=== PATIENT | male | born 1965 | race Caucasian/White ===

== ENCOUNTER 2018-11-22 18:50 | Emergency (ER) | payer BC ==
[2018-11-22] MEDS ORDERED: NS 0.9% 1000 ML** 1,000 ML IV ONE (20:12)
[2018-11-22 21:29] LABS: ABS Eosinophils 0.4 10^3/ul (0-0.6); ABS Lymphocytes 1.4 10^3/ul (1.0-4.8); ABS Monocytes 0.8 10^3/ul (0-0.8); ABS Neutrophils 6.7 10^3/ul (1.5-7.7); Eosinophil % 3.8 %; Hematocrit 43 % (42-52); Lymphocyte % 14.9 %; Mean Corpuscular HGB Conc 35 g/dL (31-36); Mean Corpuscular Hemoglobin 33 pg (27-31); Mean Corpuscular Volume 94 fL (80-94); Mean Platelet Volume 8.5 fL (7.4-10.4); Nucleated Red Blood Cells % 0.1; Platelet Count 198 10^3/uL (150-450); Red Blood Count 4.56 10^6 /uL (4.18-5.48); Red Cell Distribution Width 17 % (10-15); White Blood Count 9.3 10^3/uL (3.5-10.8)
[2018-11-22 21:36] LABS: INR 0.99 (0.82-1.09)
[2018-11-22 21:48] LABS: Albumin 4.3 g/dL (3.2-5.2); Albumin/Globulin Ratio 1.9 (1-3); BUN/Creatinine Ratio 13.7 (8-20); C Reactive Protein 13.64 mg/L (<8.01); Calcium 9.3 mg/dL (8.6-10.3); EGFR African American 78.9 (>60); EGFR Non-African American 65.2 (>60); Globulin 2.3 g/dL (2-4); Potassium 3.6 mmol/L (3.5-5.0); Total Bilirubin 0.8 mg/dL (0.2-1.0); Total Protein 6.6 g/dL (6.4-8.9)
[2018-11-22] MEDS ORDERED: Morphine 4 MG/ML VIAL (1 ml) 4 MG/ML VIAL IV ONE (22:04)
--- NOTE | 2018-11-22 22:17 | ED ---
GI/ HPI - HPI Summary HPI Summary: 53-year-old male presents with abdominal pain for the past day. He states that it started in left upper quadrant and has since moved to left lower quadrant. Denies any nausea vomiting. No diarrhea or constipation. No blood in his stool or dark tarry stool. No chest pain or shortness breath. He has never had this before. Has had his appendix removed. No urinary symptoms. Pain doesn't change with food. No loss of appetite. Has took ibuprofen for the pain without relief. - History of Current Complaint Chief Complaint: EDAbdPain Time Seen by Provider: 11/22/18 21:59 Stated Complaint: ABD APIN PER PT Pain Intensity: 9 - Allergy/Home Medications Allergies/Adverse Reactions: Allergies Allergy/AdvReac Type Severity Reaction Status Date / Time No Known Allergies Allergy Verified 12/09/12 10:30 Home Medications: Home Medications Levothyroxine TAB* [Synthroid TAB*] 112 mcg PO DAILY 11/22/18 [History Confirmed 11/22/18] Lisinopril/HCTZ 20/25(NF) [Zestoretic 20/(NF)] 1 tab PO DAILY 11/22/18 [ History Confirmed 11/22/18] Potassium Chlor TAB* [Klor Con ER TAB*] 10 meq PO DAILY 11/22/18 [History Confirmed 11/22/18] amLODIPine TAB* [Norvasc 5 mg TAB*] 10 mg PO DAILY 11/22/18 [History Confirmed 11/22/18] PMH/Surg Hx/FS Hx/Imm Hx Endocrine/Hematology History: Denies: Hx Anticoagulant Therapy Respiratory History: Denies: Hx Asthma - Surgical History Surgery Procedure, Year, and Place: pneumonia 2010 Infectious Disease History: No Infectious Disease History: Denies: History Other Infectious Disease, Traveled Outside the [place] in Last 30 Days - Family History Known Family History: Positive: Non-Contributory - Social History Substance Use Type: Reports: None Smoking Status (MU): Unknown if Ever Smoked Review of Systems Negative: Fever Negative: Chest Pain Negative: Shortness Of Breath Positive: Abdominal Pain. Negative: Vomiting, Diarrhea, Nausea All Other Systems Reviewed And Are Negative: Yes Physical Exam Triage Information Reviewed: Yes Vital Signs On Initial Exam: Initial Vitals Temp Pulse Resp BP Pulse Ox 98.2 F 74 16 155/87 94 11/22/18 18:53 11/22/18 18:53 11/22/18 18:53 11/22/18 18:53 11/22/18 18:53 Vital Signs Reviewed: Yes Appearance: Positive: Well-Appearing Skin: Positive: Warm, Dry Head/Face: Positive: Normal Head/Face Inspection Eyes: Positive: Normal, Conjunctiva Clear ENT: Positive: Pharynx normal Respiratory/Lung Sounds: Positive: Clear to Auscultation, Breath Sounds Present Cardiovascular: Positive: Normal, RRR Abdomen Description: Positive: Soft, Other: - tenderness LUQ and LLQ Bowel Sounds: Positive: Present Musculoskeletal: Positive: Normal Neurological: Positive: Normal Psychiatric: Positive: Normal Procedures - Sedation Patient Received Moderate/Deep Sedation with Procedure: No Diagnostics - Vital Signs Vital Signs Temp Pulse Resp BP Pulse Ox 11/22/18 21:05 99.3 F 67 16 138/66 94 11/22/18 18:53 98.2 F 74 16 155/87 94 - Laboratory Lab Results: Lab Results 11/22/18 11/22/18 11/22/18 Range/Units 21:18 21:18 21:18 WBC 9.3 (3.5-10.8) 10^3/uL RBC 4.56 (4.18-5.48) 10^6 /uL Hgb 15.0 (14.0-18.0) g/dL Hct 43 (42-52) % MCV 94 (80-94) fL MCH 33 H (27-31) pg MCHC 35 (31-36) g/dL RDW 17 H (10-15) % Plt Count 198 (150-450) 10^3/uL MPV 8.5 (7.4-10.4) fL Neut % (Auto) 72.1 % Lymph % (Auto) 14.9 % Ballard % (Auto) 8.7 % Eos % (Auto) 3.8 % Baso % (Auto) 0.5 % Absolute Neuts (auto) 6.7 (1.5-7.7) 10^3/ul Absolute Lymphs (auto) 1.4 (1.0-4.8) 10^3/ul Absolute Monos (auto) 0.8 (0-0.8) 10^3/ul Absolute Eos (auto) 0.4 (0-0.6) 10^3/ul Absolute Basos (auto) 0.0 (0-0.2) 10^3/ul Absolute Nucleated RBC 0.0 10^3/ul Nucleated RBC % 0.1 INR (Anticoag Therapy) 0.99 (0.82-1.09) Sodium 136 (135-145) mmol/L Potassium 3.6 (3.5-5.0) mmol/L Chloride 103 (101-111) mmol/L Carbon Dioxide 28 (22-32) mmol/L Anion Gap 5 (2-11) mmol/L BUN 16 (6-24) mg/dL Creatinine 1.17 (0.67-1.17) mg/dL Est GFR ( Amer) 78.9 (>60) Est GFR (Non-Af Amer) 65.2 (>60) BUN/Creatinine Ratio 13.7 (8-20) Glucose 106 H (70-100) mg/dL Lactic Acid (0.5-2.0) mmol/L Calcium 9.3 (8.6-10.3) mg/dL Total Bilirubin 0.80 (0.2-1.0) mg/dL AST 38 (13-39) U/L ALT 45 (7-52) U/L Alkaline Phosphatase 74 (34-104) U/L C-Reactive Protein 13.64 H (<8.01) mg/L Total Protein 6.6 (6.4-8.9) g/dL Albumin 4.3 (3.2-5.2) g/dL Globulin 2.3 (2-4) g/dL Albumin/Globulin Ratio 1.9 (1-3) Amylase 30 (29-103) U/L Lipase 42 (11.0-82.0) U/L 11/22/18 Range/Units 21:18 WBC (3.5-10.8) 10^3/uL RBC (4.18-5.48) 10^6 /uL Hgb (14.0-18.0) g/dL Hct (42-52) % MCV (80-94) fL MCH (27-31) pg MCHC (31-36) g/dL RDW (10-15) % Plt Count (150-450) 10^3/uL MPV (7.4-10.4) fL Neut % (Auto) % Lymph % (Auto) % Ballard % (Auto) % Eos % (Auto) % Baso % (Auto) % Absolute Neuts (auto) (1.5-7.7) 10^3/ul Absolute Lymphs (auto) (1.0-4.8) 10^3/ul Absolute Monos (auto) (0-0.8) 10^3/ul Absolute Eos (auto) (0-0.6) 10^3/ul Absolute Basos (auto) (0-0.2) 10^3/ul Absolute Nucleated RBC 10^3/ul Nucleated RBC % INR (Anticoag Therapy) (0.82-1.09) Sodium (135-145) mmol/L Potassium (3.5-5.0) mmol/L Chloride (101-111) mmol/L Carbon Dioxide (22-32) mmol/L Anion Gap (2-11) mmol/L BUN (6-24) mg/dL Creatinine (0.67-1.17) mg/dL Est GFR ( Amer) (>60) Est GFR (Non-Af Amer) (>60) BUN/Creatinine Ratio (8-20) Glucose (70-100) mg/dL Lactic Acid 0.9 (0.5-2.0) mmol/L Calcium (8.6-10.3) mg/dL Total Bilirubin (0.2-1.0) mg/dL AST (13-39) U/L ALT (7-52) U/L Alkaline Phosphatase (34-104) U/L C-Reactive Protein (<8.01) mg/L Total Protein (6.4-8.9) g/dL Albumin (3.2-5.2) g/dL Globulin (2-4) g/dL Albumin/Globulin Ratio (1-3) Amylase (29-103) U/L Lipase (11.0-82.0) U/L Result Diagrams: 11/22/18 21:18 11/22/18 21:18 Lab Statement: Any lab studies that have been ordered have been reviewed, and results considered in the medical decision making process. - CT abd CT Interpretation Completed By: Radiologist Summary of CT Findings: IMPRESSION: 1. Acute diverticulitis involving the distal descending colon. No free air, abscess, fistula, or bowel obstruction. 2. Cholelithiasis. 3. Fatty liver. 4. Large hiatal hernia that is similar in size compared to the prior CT on 12/09/2012. 5. Small fat containing umbilical hernia that is similar in size compared to the prior CT on 12/09/2012. Re-Evaluation - Re-Evaluation First Eval Re-Evaluation Time: 00:37 Change: Improved Comment: feeling better GIGU Course/Dx - Course Course Of Treatment: 53-year-old male presents with abdominal pain for the past day. He states that it started in left upper quadrant and has since moved to left lower quadrant. Denies any nausea vomiting. No diarrhea or constipation. No blood in his stool or dark tarry stool. No chest pain or shortness breath. He has never had this before. Has had his appendix removed. No urinary symptoms. Pain doesn't change with food. No loss of appetite. Has took ibuprofen for the pain without relief. On exam tenderness in left upper quadrant and left lower quadrant. White blood count normal. CRP elevated. urine no infection. CT shows diverticulitis. will treat with augmentin and flagyl. patient understand and agrees with plan. - Diagnoses Differential Diagnoses - Male: Diverticulitis, Gastritis, Gastroenteritis (Viral ) Provider Diagnoses: Diverticulitis Discharge ED - Sign-Out/Discharge Documenting (check all that apply): Patient Departure - Discharge Plan Condition: Good Disposition: HOME Prescriptions: Amoxicillin/Clavulanate TAB* [Augmentin TAB 875*] 875 mg PO BID #19 tab HYDROcodone/ACETAMIN 5-325 MG* [[place] 5-325 TAB*] 1 tab PO Q6H PRN #8 tab MDD 4 PRN Reason: Pain - Severe metroNIDAZOLE [Flagyl 500 MG TAB] 500 mg PO TID #29 tab Patient Education Materials: Diverticulitis (ED) Referrals: Justa Augustin [facility] [Primary Care Provider] - Additional Instructions: Take augmentin twice a day for 10 days, first dose given in ED Take Flagyl every 8 hours for 10 days, first dose given in ED Take tyenlol or ibuprofen every 6 hours for pain, use norco for break through pain every 6 hours Follow clear liquid diet until symptoms improve follow up with primary Return to ED if develop any new or worsening symptoms - Billing Disposition and Condition Condition: GOOD Disposition: Home
[2018-11-22] MEDS ORDERED: Iohexol 300* (CONTRAST) 10 ML SDV IV ONE (22:58)
[2018-11-23 00:05] LABS: Urine Appearance Clear; Urine Bilirubin Negative (Negative); Urine Blood Negative (Negative); Urine Color Straw; Urine Glucose Negative (Negative); Urine Ketones Negative (Negative); Urine Nitrite Negative (Negative); Urine Protein Negative (Negative); Urine Specific Gravity 1.014 (1.010-1.030); Urine Urobilinogen Negative (Negative)
[2018-11-23] MEDS ORDERED: Amoxicillin/Clavulanate TAB* 875 MG PO ONE (00:27)
[2018-11-23] MEDS ORDERED: metroNIDAZOLE TAB* 250 MG PO ONE (00:27)
[2018-11-23] MEDS ORDERED: HYDROcodone/ACETAMIN 5-325 MG* 1 TAB PO ONE (00:27)
[2018-11-23 01:12] VITALS: BP 118/79
== END 2018-11-23 01:12 | disposition home or self-care (01) ==
LOC: ED 18:50
DX: K57.92 Diverticulitis of intestine, part unspecified, without perforation or abscess without bleeding (principal); R10.9 Unspecified abdominal pain; Z79.899 Other long term (current) drug therapy
CPT/HCPCS: 36415; 74177; 80053; 81003; 82150; 83605; 83690; 85025; 85610; 86140; 99283; A9270-GY; J2270; Q9967

== ENCOUNTER 2023-02-06 10:59 | Inpatient (IN) ==
[2023-02-06] MEDS ORDERED: Furosemide 40 mg/4 ml IV VIAL IV SLOW PU ONE (13:25)
[2023-02-06 13:30] LABS: Hematocrit 13.7 % (38-53); Hemoglobin 4.1 g/dL (13.2-16.3); Mean Corpuscular Hemoglobin 17.7 pg (27-33); Mean Corpuscular Hgb Conc 29.6 g/dL (31-36); Mean Corpuscular Volume 59.6 fL (80-97); Mean Platelet Volume 8.3 fL (7.5-11.2); Platelet Count 292 10^3/uL (150-450); Red Blood Count 2.31 10^6/uL (4.06-5.63); Red Cell Distribution Width 21.8 % (12-17); White Blood Count 5.7 10^3/uL (3.6-10.2)
[2023-02-06 13:40] LABS: Albumin 3.7 g/dL (3.2-5.2); Albumin/Globulin Ratio 1.3 (1-3); Calcium 9.2 mg/dL (8.6-10.3); Creatinine, Serum 1.4 mg/dL (0.67-1.17); Globulin 2.9 g/dL (2-4); Total Bilirubin 0.9 mg/dL (0.2-1.0); Total Protein 6.6 g/dL (6.4-8.9); eGFR CKD-EPI 58.6 (>60)
[2023-02-06 13:53] LABS: ABS Basophils 0.1 10^3/uL (0.0-0.1); ABS Eosinophils 0.1 10^3/uL (0.0-0.5); ABS Lymphocytes 0.6 10^3/uL (1.0-4.8); ABS Monocytes 0.5 10^3/uL (0.0-1.1); ABS Neutrophils 4.6 10^3/uL (1.5-7.6); ABS Nucleated RBC 0.02 10^3/ul; Anisocytosis 2+; Eosinophil % 0.9 %; Hypochromasia 2+; Lymphocyte % 10.1 %; Microcytosis 3+; Nucleated Red Blood Cells % 0.4 %/100WBC (0.0-0.8); Polychromasia 1+
[2023-02-06] MEDS ORDERED: Iodixanol (CONTRAST) 320 MG/ML 100 ML SDV IV ONE (14:58)
[2023-02-06] MEDS ORDERED: Azithromycin 500 mg/250 ml NS 500 MG/250 ML BAG IVPB ONE (17:38)
[2023-02-06] MEDS ORDERED: cefTRIAXone 1 gm/50 mL D5W 1 GM/50 ML BAG IV ONE (17:38)
[2023-02-06] MEDS ORDERED: Vancomycin per Pharmacy 1 EA NOTE FOLLOW UP PRN (23:04)
[2023-02-06] MEDS ORDERED: Potassium Chlor 20 meq TAB.ER PO ONE (23:11)
[2023-02-06] MEDS: Furosemide 20 mg/2 ml IV VIAL IV SCH (23:59)
[2023-02-07] MEDS ORDERED: Vancomycin 1,750 MG in NS 0.9% 500 ml BAG 500 ML IVPB ONE
[2023-02-07 00:09] LABS: Hematocrit for Retic CNT 15.5 % (38-53); Immature Retic Fraction 0.52; RBC Retic Count 2.51 10^6/ul (4.06-5.63)
[2023-02-07 00:54] LABS: TSH Ultra Thyroid Stim Horm 2.27 mcIU/mL (0.34-5.60)
[2023-02-07 01:00] LABS: Ferritin 4.1 ng/mL (24-336)
[2023-02-07 04:55] LABS: Albumin 3.5 g/dL (3.2-5.2); Albumin/Globulin Ratio 1.3 (1-3); Calcium 8.3 mg/dL (8.6-10.3); Creatinine, Serum 1.3 mg/dL (0.67-1.17); Globulin 2.7 g/dL (2-4); Magnesium 1.8 mg/dL (1.9-2.7); Potassium 3.1 mmol/L (3.5-5.0); Total Bilirubin 1.6 mg/dL (0.2-1.0); Total Protein 6.2 g/dL (6.4-8.9); eGFR CKD-EPI 64.1 (>60)
[2023-02-07 05:02] LABS: Urine Appearance Clear; Urine Bilirubin Negative (Negative); Urine Blood Negative (Negative); Urine Color Yellow; Urine Glucose Negative (Negative); Urine Ketones Negative (Negative); Urine Nitrite Negative (Negative); Urine Protein Negative (Negative); Urine Specific Gravity 1.014 (1.002-1.030); Urine Urobilinogen Negative (Negative)
[2023-02-07 05:13] LABS: ABS Basophils 0.1 10^3/uL (0.0-0.1); ABS Eosinophils 0.1 10^3/uL (0.0-0.5); ABS Lymphocytes 0.7 10^3/uL (1.0-4.8); ABS Monocytes 0.7 10^3/uL (0.0-1.1); ABS Nucleated RBC 0.02 10^3/ul; Eosinophil % 2.2 %; Hematocrit 19.8 % (38-53); Hemoglobin 6.3 g/dL (13.2-16.3); Lymphocyte % 11.2 %; Mean Corpuscular Hemoglobin 21.1 pg (27-33); Mean Corpuscular Hgb Conc 31.8 g/dL (31-36); Mean Corpuscular Volume 66.4 fL (80-97); Mean Platelet Volume 8.2 fL (7.5-11.2); Nucleated Red Blood Cells % 0.3 %/100WBC (0.0-0.8); Platelet Count 267 10^3/uL (150-450); Red Blood Count 2.99 10^6/uL (4.06-5.63); Red Cell Distribution Width 28.2 % (12-17); White Blood Count 6.7 10^3/uL (3.6-10.2)
[2023-02-07] MEDS ORDERED: Magnesium Sulfate 2 gm BAG 2 GM/50 ML BAG IVPB ONE (07:30)
[2023-02-07] MEDS: Potassium Chlor 20 meq TAB.ER PO SCH ×2 (08:53→10:35)
[2023-02-07] MEDS: Cholecalciferol (VIT D3) 1,000 unit TAB PO SCH (08:54)
[2023-02-07] MEDS: Potassium Chlor 10 meq TAB PO SCH (08:54)
[2023-02-07] MEDS: Furosemide 20 mg/2 ml IV VIAL IV SCH ×2 (08:55→20:07)
[2023-02-07 12:23] LABS: ABS Basophils 0.1 10^3/uL (0.0-0.1); ABS Eosinophils 0.2 10^3/uL (0.0-0.5); ABS Lymphocytes 0.7 10^3/uL (1.0-4.8); ABS Monocytes 0.6 10^3/uL (0.0-1.1); ABS Neutrophils 5.1 10^3/uL (1.5-7.6); ABS Nucleated RBC 0.03 10^3/ul; Eosinophil % 2.6 %; Hematocrit 23.8 % (38-53); Hemoglobin 7.6 g/dL (13.2-16.3); Lymphocyte % 10.7 %; Mean Corpuscular Hemoglobin 21.6 pg (27-33); Mean Corpuscular Hgb Conc 32.1 g/dL (31-36); Mean Corpuscular Volume 67.5 fL (80-97); Mean Platelet Volume 8.3 fL (7.5-11.2); Nucleated Red Blood Cells % 0.5 %/100WBC (0.0-0.8); Platelet Count 287 10^3/uL (150-450); Red Blood Count 3.53 10^6/uL (4.06-5.63); Red Cell Distribution Width 27.6 % (12-17); White Blood Count 6.7 10^3/uL (3.6-10.2)
[2023-02-07 13:05] LABS: Anisocytosis 2+; Hypochromasia 2+; Microcytosis 2+; Polychromasia 1+; Target Cells 1+
[2023-02-07 13:46] LABS: C Reactive Protein 20.9 mg/L (<8.01); CRP High Sensitivity 21.94 mg/L (<2.00)
[2023-02-07] MEDS ORDERED: Vancomycin 1000 MG in NS 0.9% 250 ML IVPB SCH (15:00)
[2023-02-07 15:05] LABS: INR 1.28 (0.83-1.13)
[2023-02-07 16:04] LABS: Erythrocyte Sed Rate 35 mm/Hr (0-19)
[2023-02-07] MEDS: cefTRIAXone 1 gm/50 mL D5W 1 GM/50 ML BAG IV SCH (17:19)
[2023-02-07] MEDS: Azithromycin 500 mg/250 ml NS 500 MG/250 ML BAG IVPB SCH (17:53)
[2023-02-07] MEDS ORDERED: Albuterol/Ipratropium NEB.SOL (2.5/0.5 MG) 3 ML NEB.SOLN INH PRN (18:40)
[2023-02-07 20:22] LABS: Hematocrit 23.3 % (38-53); Hemoglobin 7.4 g/dL (13.2-16.3); Mean Corpuscular Hemoglobin 21.7 pg (27-33); Mean Corpuscular Hgb Conc 31.8 g/dL (31-36); Mean Corpuscular Volume 68.2 fL (80-97); Mean Platelet Volume 8.5 fL (7.5-11.2); Platelet Count 268 10^3/uL (150-450); Red Blood Count 3.42 10^6/uL (4.06-5.63); Red Cell Distribution Width 26.9 % (12-17); White Blood Count 8.3 10^3/uL (3.6-10.2)
[2023-02-07 20:43] LABS: ABS Basophils 0.1 10^3/uL (0.0-0.1); ABS Eosinophils 0.2 10^3/uL (0.0-0.5); ABS Lymphocytes 0.4 10^3/uL (1.0-4.8); ABS Monocytes 0.4 10^3/uL (0.0-1.1); ABS Neutrophils 7.3 10^3/uL (1.5-7.6); ABS Nucleated RBC 0.02 10^3/ul; Eosinophil % 2.1 %; Lymphocyte % 4.3 %; Nucleated Red Blood Cells % 0.3 %/100WBC (0.0-0.8)
[2023-02-08 06:58] LABS: Calcium 8.5 mg/dL (8.6-10.3); Creatinine, Serum 1.13 mg/dL (0.67-1.17); Magnesium 2.2 mg/dL (1.9-2.7); Phosphorus 3.1 mg/dL (2.5-5.0); Potassium 3.7 mmol/L (3.5-5.0); eGFR CKD-EPI 75.8 (>60)
[2023-02-08] MEDS: Furosemide 20 mg/2 ml IV VIAL IV SCH ×2 (10:36→20:58)
[2023-02-08] MEDS ORDERED: Heparin 2 UNITS/ML 1000 mls 0 ML IV ONE (13:16)
[2023-02-08] MEDS ORDERED: Vancomycin Trough Check NOTE FOLLOW UP ONE (14:30)
[2023-02-08] MEDS: Potassium Chlor 10 meq TAB PO SCH (18:35)
[2023-02-08] MEDS: Cholecalciferol (VIT D3) 1,000 unit TAB PO SCH (18:35)
[2023-02-08] MEDS: Azithromycin 500 mg/250 ml NS 500 MG/250 ML BAG IVPB SCH (18:36)
[2023-02-08 19:50] LABS: Urine TP Concentration 13 mg/dL
[2023-02-08] MEDS: cefTRIAXone 1 gm/50 mL D5W 1 GM/50 ML BAG IV SCH (20:53)
[2023-02-09 07:17] LABS: Hematocrit 24.2 % (38-53); Hemoglobin 7.7 g/dL (13.2-16.3); Mean Corpuscular Hemoglobin 21.9 pg (27-33); Mean Corpuscular Hgb Conc 31.8 g/dL (31-36); Mean Corpuscular Volume 68.8 fL (80-97); Mean Platelet Volume 8.3 fL (7.5-11.2); Platelet Count 265 10^3/uL (150-450); Red Blood Count 3.52 10^6/uL (4.06-5.63); Red Cell Distribution Width 27.7 % (12-17); White Blood Count 7.5 10^3/uL (3.6-10.2)
[2023-02-09 07:22] LABS: Calcium 8.5 mg/dL (8.6-10.3); Creatinine, Serum 1.06 mg/dL (0.67-1.17); Potassium 3.8 mmol/L (3.5-5.0); eGFR CKD-EPI 81.9 (>60)
[2023-02-09 07:46] LABS: ABS Lymphocytes 0.5 10^3/uL (1.0-4.8); ABS Monocytes 0.1 10^3/uL (0.0-1.1); ABS Neutrophils 6.8 10^3/uL (1.5-7.6); ABS Nucleated RBC 0.03 10^3/ul; Lymphocyte % 6.6 %; Nucleated Red Blood Cells % 0.4 %/100WBC (0.0-0.8)
[2023-02-09 07:47] LABS: Anisocytosis 2+; Hypochromasia 1+; Microcytosis 2+; Polychromasia 1+
[2023-02-09] MEDS: Potassium Chlor 10 meq TAB PO SCH (10:08)
[2023-02-09] MEDS: Cholecalciferol (VIT D3) 1,000 unit TAB PO SCH (10:08)
[2023-02-09] MEDS ORDERED: Heparin 2 UNITS/ML 1000 mls 1,000 ML IV ONE (10:43)
[2023-02-09] MEDS: Albuterol/Ipratropium NEB.SOL (2.5/0.5 MG) 3 ML NEB.SOLN INH SCH ×2 (11:29→13:29)
[2023-02-09] MEDS ORDERED: fentaNYL 100 mcg/2 ml 50 MCG/ML VIAL ONE (11:51)
[2023-02-09] MEDS: Furosemide 20 mg/2 ml IV VIAL IV SCH (13:31)
[2023-02-09] MEDS ORDERED: Albuterol/Ipratropium NEB.SOL (2.5/0.5 MG) 3 ML NEB.SOLN INH PRN (13:32)
[2023-02-09] MEDS ORDERED: Furosemide 40 mg/4 ml IV VIAL IV ONE (16:21)
[2023-02-09] MEDS: Azithromycin 500 mg/250 ml NS 500 MG/250 ML BAG IVPB SCH (17:01)
[2023-02-09] MEDS: cefTRIAXone 1 gm/50 mL D5W 1 GM/50 ML BAG IV SCH (18:19)
[2023-02-10 06:44] LABS: Calcium 8.7 mg/dL (8.6-10.3); Creatinine, Serum 1.11 mg/dL (0.67-1.17); Magnesium 1.9 mg/dL (1.9-2.7); Potassium 3.4 mmol/L (3.5-5.0); eGFR CKD-EPI 77.5 (>60)
[2023-02-10 06:58] LABS: Hematocrit 25.3 % (38-53); Mean Corpuscular Hemoglobin 21.9 pg (27-33); Mean Corpuscular Hgb Conc 31.5 g/dL (31-36); Mean Corpuscular Volume 69.5 fL (80-97); Mean Platelet Volume 8.5 fL (7.5-11.2); Platelet Count 263 10^3/uL (150-450); Red Blood Count 3.64 10^6/uL (4.06-5.63); Red Cell Distribution Width 28.9 % (12-17); White Blood Count 9.9 10^3/uL (3.6-10.2)
[2023-02-10] MEDS ORDERED: Potassium Chlor 20 meq TAB.ER PO ONE (07:15)
[2023-02-10] MEDS ORDERED: Magnesium Sulfate 2 gm BAG 2 GM/50 ML BAG IVPB ONE (07:15)
[2023-02-10 07:27] LABS: ABS Monocytes 0.7 10^3/uL (0.0-1.1); ABS Neutrophils 8.1 10^3/uL (1.5-7.6); ABS Nucleated RBC 0.02 10^3/ul; Anisocytosis 3+; Hypochromasia 1+; Lymphocyte % 10.3 %; Nucleated Red Blood Cells % 0.2 %/100WBC (0.0-0.8); Polychromasia 2+
[2023-02-10] MEDS: Cholecalciferol (VIT D3) 1,000 unit TAB PO SCH (09:13)
[2023-02-10] MEDS: Potassium Chlor 10 meq TAB PO SCH (09:13)
[2023-02-10] MEDS: cefTRIAXone 1 gm/50 mL D5W 1 GM/50 ML BAG IV SCH (17:46)
[2023-02-10] MEDS: Furosemide 40 mg/4 ml IV VIAL IV SCH (22:18)
[2023-02-11 07:01] LABS: Hematocrit 25.5 % (38-53); Hemoglobin 8.1 g/dL (13.2-16.3); Mean Corpuscular Hemoglobin 21.5 pg (27-33); Mean Corpuscular Hgb Conc 31.6 g/dL (31-36); Mean Corpuscular Volume 68.2 fL (80-97); Mean Platelet Volume 8.3 fL (7.5-11.2); Platelet Count 243 10^3/uL (150-450); Red Blood Count 3.74 10^6/uL (4.06-5.63); Red Cell Distribution Width 28.9 % (12-17)
[2023-02-11 07:12] LABS: Albumin 3.6 g/dL (3.2-5.2); Albumin/Globulin Ratio 1.4 (1-3); Creatinine, Serum 0.92 mg/dL (0.67-1.17); Globulin 2.5 g/dL (2-4); Potassium 3.2 mmol/L (3.5-5.0); Total Bilirubin 1.1 mg/dL (0.2-1.0); Total Protein 6.1 g/dL (6.4-8.9)
[2023-02-11] MEDS ORDERED: Potassium Chlor 20 meq TAB.ER PO ONE (08:20)
[2023-02-11] MEDS: Furosemide 40 mg/4 ml IV VIAL IV SCH (09:52)
[2023-02-11] MEDS: Cholecalciferol (VIT D3) 1,000 unit TAB PO SCH (09:53)
[2023-02-11] MEDS: Potassium Chlor 10 meq TAB PO SCH (09:53)
[2023-02-11 13:31] VITALS: BP 130/67
[2023-02-12 13:51] LABS: TB1 Ag minus Nil Result -0.01 IU/mL; TB2 Ag minus Nil Result -0.01 IU/mL
[2023-02-12 13:52] LABS: QuantiferonTb Gold Plus Result Negative (Negative)
[2023-02-13 10:46] LABS: C-ANCA Negative (Negative); P-ANCA Indeterminate (Negative)
== END 2023-02-11 15:18 | disposition home or self-care (01) | DRG 189 ==
LOC: ED 10:59 → EDHOLD 10:59 → SUATTDRO 20:10 → MED 21:16
PROVIDERS: ADMIT Internal Medicine; ATTEND Student in an Organized Health Care Education/Training Program

== ENCOUNTER 2023-02-20 10:09 | Inpatient (IN) ==
[2023-02-20 11:45] LABS: Activated Partial Thrombo Time 24.1 seconds (26.0-38.0); INR 1.07 (0.83-1.13)
[2023-02-20 11:57] LABS: High Sens Troponin Baseline 46 pg/mL (<20)
[2023-02-20 11:59] LABS: ALT 410 U/L (7-52); Albumin 3.4 g/dL (3.2-5.2); Alkaline Phosphatase 421 U/L (35-149); Anion Gap 11 mmol/L (2-16); Blood Urea Nitrogen 40 mg/dL (6-24); C Reactive Protein 126.98 mg/L (<8.01); CO2 Carbon Dioxide 24 mmol/L (22-32); Calcium 8.7 mg/dL (8.6-10.3); Chloride 101 mmol/L (101-111); Creatinine, Serum 1.68 mg/dL (0.67-1.17); Globulin 3.4 g/dL (2-4); Glucose 130 mg/dL (70-100); Sodium 136 mmol/L (135-145); Total Protein 6.8 g/dL (6.4-8.9); eGFR CKD-EPI 47.1 (>60)
[2023-02-20 12:22] LABS: ABS Lymphocytes 0.3 10^3/uL (1.0-4.8); ABS Monocytes 0.4 10^3/uL (0.0-1.1); ABS Neutrophils 2.9 10^3/uL (1.5-7.6); ABS Nucleated RBC 0.01 10^3/ul; Eosinophil % 0.1 %; Hematocrit 24.2 % (38-53); Hemoglobin 7.9 g/dL (13.2-16.3); Lymphocyte % 8.9 %; Mean Corpuscular Hgb Conc 32.6 g/dL (31-36); Mean Corpuscular Volume 67.3 fL (80-97); Nucleated Red Blood Cells % 0.3 %/100WBC (0.0-0.8); Platelet Count 162 10^3/uL (150-450); Red Cell Distribution Width 29.9 % (12-17); White Blood Count 3.6 10^3/uL (3.6-10.2)
[2023-02-20 13:36] LABS: Direct Bilirubin 0.4 mg/dL (0.03-0.18); Potassium Redraw 4.4 mmol/L (3.5-5.0)
[2023-02-20 13:47] LABS: Albumin 3.3 g/dL (3.2-5.2); Albumin/Globulin Ratio 1.1 (1-3); Direct Bilirubin 0.3 mg/dL (0.03-0.18); Globulin 3.1 g/dL (2-4); Indirect Bilirubin 0.5 mg/dL (0.3-1.0); Total Bilirubin 0.8 mg/dL (0.2-1.0); Total Protein 6.4 g/dL (6.4-8.9)
[2023-02-20] MEDS ORDERED: Piperacillin/Tazobac 3.375 BAG 3.375 GM/100 ML BAG IV ONE ×2 (14:24→17:07)
[2023-02-20 15:17] LABS: Hepatitis B Surface Antigen Nonreactive (Nonreactive)
[2023-02-20 15:22] LABS: Hepatitis A Ab IgM Negative (Negative); Hepatitis B Core IgM Nonreactive (Nonreactive)
[2023-02-20] MEDS ORDERED: Lactated Ringers 1000 ml BAG 1,000 ML IV ONE ×2 (15:23→20:05)
[2023-02-20 15:34] LABS: Hepatitis C Antibody Negative (Negative)
[2023-02-20] MEDS ORDERED: Zosyn per Pharmacy NOTE FOLLOW UP SCH ×2 (18:00)
[2023-02-20] MEDS ORDERED: ZOSYN 3.375 GM Q8H per EXTENDED INFUSION IV SCH (18:00)
[2023-02-20 18:54] LABS: Erythrocyte Sed Rate 113 mm/Hr (0-19)
[2023-02-20] MEDS ORDERED: Ondansetron 4 mg VIAL 2 MG/ML 2 ml VIAL IV PRN (19:36)
[2023-02-21 00:52] LABS: HIV 4th Generation Nonreactive (Nonreactive)
[2023-02-21] MEDS: ZOSYN 3.375 GM Q8H per EXTENDED INFUSION IV SCH ×3 (02:01→18:05)
[2023-02-21 07:23] LABS: Albumin 3.1 g/dL (3.2-5.2); Calcium 8.3 mg/dL (8.6-10.3); Creatinine, Serum 1.34 mg/dL (0.67-1.17); Globulin 3.2 g/dL (2-4); Potassium 4.2 mmol/L (3.5-5.0); Total Bilirubin 0.8 mg/dL (0.2-1.0); Total Protein 6.3 g/dL (6.4-8.9); eGFR CKD-EPI 61.8 (>60)
[2023-02-21 07:38] LABS: Hematocrit 23.2 % (38-53); Hematocrit for Retic CNT 23.2 % (38-53); Hemoglobin 7.4 g/dL (13.2-16.3); Mean Corpuscular Hgb Conc 32.1 g/dL (31-36); Mean Corpuscular Volume 68.5 fL (80-97); Mean Platelet Volume 8.9 fL (7.5-11.2); Platelet Count 161 10^3/uL (150-450); RBC Retic Count 3.38 10^6/ul (4.06-5.63); Red Blood Count 3.38 10^6/uL (4.06-5.63); Red Cell Distribution Width 29.6 % (12-17)
[2023-02-21] MEDS: D5W 1000 ml BAG 1,000 ML IV SCH ×2 (08:22→18:05)
[2023-02-21 08:41] LABS: Corrected Retic Count 0.2 % (0.5-1.5); Immature Retic Fraction 0.22
[2023-02-21 08:50] LABS: ABS Lymphocytes 0.4 10^3/uL (1.0-4.8); ABS Monocytes 0.2 10^3/uL (0.0-1.1); ABS Neutrophils 1.2 10^3/uL (1.5-7.6); Eosinophil % 0.8 %; Lymphocyte % 21.1 %; Nucleated Red Blood Cells % 0.1 %/100WBC (0.0-0.8)
[2023-02-21 18:09] LABS: Ferritin 505.2 ng/mL (24-336)
[2023-02-22] MEDS: ZOSYN 3.375 GM Q8H per EXTENDED INFUSION IV SCH ×3 (02:07→18:26)
[2023-02-22] MEDS: D5W 1000 ml BAG 1,000 ML IV SCH (04:05)
[2023-02-22 06:50] LABS: Hematocrit 22.8 % (38-53); Hemoglobin 7.3 g/dL (13.2-16.3); Mean Corpuscular Hgb Conc 31.9 g/dL (31-36); Mean Corpuscular Volume 68.8 fL (80-97); Mean Platelet Volume 8.7 fL (7.5-11.2); Platelet Count 178 10^3/uL (150-450); Red Blood Count 3.32 10^6/uL (4.06-5.63); Red Cell Distribution Width 29.5 % (12-17); White Blood Count 2.5 10^3/uL (3.6-10.2)
[2023-02-22 08:43] LABS: ABS Eosinophils 0.1 10^3/uL (0.0-0.5); ABS Lymphocytes 0.5 10^3/uL (1.0-4.8); ABS Monocytes 0.2 10^3/uL (0.0-1.1); ABS Neutrophils 1.6 10^3/uL (1.5-7.6); Eosinophil % 2.6 %; Lymphocyte % 20.3 %; Nucleated Red Blood Cells % 0.1 %/100WBC (0.0-0.8)
[2023-02-22] MEDS: Benzocaine/Menthol LOZ PO PRN (09:01)
[2023-02-22 09:03] LABS: Albumin 2.9 g/dL (3.2-5.2); Albumin/Globulin Ratio 0.9 (1-3); Calcium 7.9 mg/dL (8.6-10.3); Creatinine, Serum 1.07 mg/dL (0.67-1.17); Globulin 3.1 g/dL (2-4); Potassium 3.9 mmol/L (3.5-5.0); eGFR CKD-EPI 80.9 (>60)
[2023-02-22] MEDS ORDERED: Potassium Chlor 20 meq TAB.ER PO ONE (09:08)
[2023-02-22] MEDS ORDERED: Ondansetron ODT 4 mg TAB 4 MG TAB SL PRN (09:38)
[2023-02-22 09:58] LABS: C Reactive Protein 111.27 mg/L (<8.01)
[2023-02-22 13:00] LABS: Cytomegalovirus IgG Antibody Positive (Negative)
[2023-02-22 14:48] LABS: Erythrocyte Sed Rate 114 mm/Hr (0-19)
[2023-02-22 23:53] LABS: Urine Appearance Clear; Urine Bilirubin Negative (Negative); Urine Blood Negative (Negative); Urine Color Amber; Urine Glucose Negative (Negative); Urine Ketones Negative (Negative); Urine Nitrite Negative (Negative); Urine Protein 2+(100 mg/dL) (Negative); Urine Specific Gravity 1.021 (1.002-1.030); Urine Urobilinogen Negative (Negative)
[2023-02-22 23:58] LABS: Urine Bacteria Absent (Absent); Urine Red Blood Cell Trace(0-2/hpf) (Absent); Urine White Blood Cell Trace(0-5/hpf) (Absent)
[2023-02-23 00:36] LABS: Anaplasma phagocytophilum Negative (Negative); B. miyamotoi PCR, B Negative (Negative); Babesia divergens/MO-1 Negative (Negative); Babesia ducani Negative (Negative); Ehrlichia chaffeensis Negative (Negative); Ehrlichia ewingii/canis Negative (Negative); Ehrlichia muris eauclairensis Negative (Negative)
[2023-02-23] MEDS: ZOSYN 3.375 GM Q8H per EXTENDED INFUSION IV SCH ×3 (02:46→18:21)
[2023-02-23 06:23] LABS: Hematocrit 22.6 % (38-53); Hemoglobin 7.2 g/dL (13.2-16.3); Mean Corpuscular Hgb Conc 31.8 g/dL (31-36); Mean Corpuscular Volume 69.3 fL (80-97); Mean Platelet Volume 8.7 fL (7.5-11.2); Platelet Count 238 10^3/uL (150-450); Red Blood Count 3.26 10^6/uL (4.06-5.63); Red Cell Distribution Width 29.2 % (12-17); White Blood Count 3.2 10^3/uL (3.6-10.2)
[2023-02-23 06:28] LABS: Albumin 2.8 g/dL (3.2-5.2); Albumin/Globulin Ratio 0.8 (1-3); Calcium 8.1 mg/dL (8.6-10.3); Creatinine, Serum 0.95 mg/dL (0.67-1.17); Globulin 3.4 g/dL (2-4); Potassium 4.3 mmol/L (3.5-5.0); Total Protein 6.2 g/dL (6.4-8.9); eGFR CKD-EPI 93.4 (>60)
[2023-02-23 07:44] LABS: ABS Eosinophils 0.1 10^3/uL (0.0-0.5); ABS Lymphocytes 0.6 10^3/uL (1.0-4.8); ABS Monocytes 0.3 10^3/uL (0.0-1.1); ABS Neutrophils 2.3 10^3/uL (1.5-7.6); Anisocytosis 3+; Eosinophil % 2.9 %; Hypochromasia 1+; Lymphocyte % 17.3 %; Microcytosis 3+; Nucleated Red Blood Cells % 0.1 %/100WBC (0.0-0.8)
[2023-02-23 09:17] LABS: % Iron Saturation 11 % (15-55); .Transferrin 169 mg/dL (203-362); Iron 25 ug/dL (50-212); Total Iron Binding Capacity 237 mcg/dL (250-450); Unsaturated Iron Binding 212 ug/dL
[2023-02-23] MEDS ORDERED: Pantoprazole VIAL 40 MG VIAL IV ONE (11:37)
[2023-02-23] MEDS: Benzocaine/Menthol LOZ PO PRN ×2 (12:20→19:41)
[2023-02-23 12:51] LABS: EBV Capsid Ag IgG Ab Positive (Negative); EBV Capsid Ag IgM Ab Positive (Negative); Epstein-Barr Nuclear Antigen Positive (Negative)
[2023-02-23 12:58] LABS: Hematocrit 23.8 % (38-53); Hemoglobin 7.5 g/dL (13.2-16.3); Mean Corpuscular Hgb Conc 31.3 g/dL (31-36); Mean Corpuscular Volume 70.2 fL (80-97); Mean Platelet Volume 8.7 fL (7.5-11.2); Platelet Count 268 10^3/uL (150-450); Red Cell Distribution Width 29.7 % (12-17); White Blood Count 3.3 10^3/uL (3.6-10.2)
[2023-02-23] MEDS: Pantoprazole VIAL 40 MG VIAL IV SCH (22:36)
[2023-02-24] MEDS: ZOSYN 3.375 GM Q8H per EXTENDED INFUSION IV SCH ×2 (01:51→10:02)
[2023-02-24 08:11] LABS: ABS Eosinophils 0.1 10^3/uL (0.0-0.5); ABS Lymphocytes 0.6 10^3/uL (1.0-4.8); ABS Monocytes 0.3 10^3/uL (0.0-1.1); ABS Neutrophils 3.1 10^3/uL (1.5-7.6); Eosinophil % 1.5 %; Hematocrit 23.3 % (38-53); Hemoglobin 7.3 g/dL (13.2-16.3); Mean Corpuscular Hemoglobin 21.5 pg (27-33); Mean Corpuscular Hgb Conc 31.4 g/dL (31-36); Mean Corpuscular Volume 68.6 fL (80-97); Mean Platelet Volume 8.6 fL (7.5-11.2); Nucleated Red Blood Cells % 0.1 %/100WBC (0.0-0.8); Platelet Count 318 10^3/uL (150-450); Red Blood Count 3.39 10^6/uL (4.06-5.63); Red Cell Distribution Width 29.4 % (12-17); White Blood Count 4.1 10^3/uL (3.6-10.2)
[2023-02-24 08:20] LABS: Albumin/Globulin Ratio 0.9 (1-3); Calcium 8.3 mg/dL (8.6-10.3); Creatinine, Serum 0.96 mg/dL (0.67-1.17); Globulin 3.2 g/dL (2-4); Potassium 4.4 mmol/L (3.5-5.0); Total Bilirubin 0.9 mg/dL (0.2-1.0); Total Protein 6.2 g/dL (6.4-8.9); eGFR CKD-EPI 92.2 (>60)
[2023-02-24] MEDS: Benzocaine/Menthol LOZ PO PRN (08:51)
[2023-02-24] MEDS: Pantoprazole VIAL 40 MG VIAL IV SCH (10:01)
[2023-02-24] MEDS ORDERED: Iohexol 350 (CONTRAST) 500 ML MDV IV ONE (10:15)
[2023-02-24 14:01] VITALS: BP 127/72
[2023-02-24 14:38] LABS: JO-1 Antibody <0.2 U; RNP Antibody, IgG 0.2 U; SS-A/Ro Antibody <0.2 U; SS-B/La Antibody <0.2 U; Scl 70 Ab, IgG, S <0.2 U; Sm (Smith) IgG Antibody <0.2 U
[2023-02-24 20:25] LABS: CMV DNA DETECT/QT, P Undetected IU/mL (Undetected)
[2023-02-26 09:50] LABS: Complement C3 65 mg/dL (75 - 175)
[2023-02-26 11:32] LABS: DRVVT Screen Ratio 1.01 ratio (<1.20); LAC APTT 32 sec (25 - 37); LAC INR 1.2 (0.9-1.1); Prothrombin Time(LAC) 12.9 sec (9.4 - 12.5)
[2023-02-26 15:53] LABS: Phospholipid (Cardiolipin) IgA 25.7 APL; Phospholipid Ab IgG < 9.4 GPL; Phospholipid Ab IgM, S 18.4 MPL
[2023-02-26 21:19] LABS: Beta 2 Glycoprotein IgG 32.7 SGU
[2023-02-27 15:52] LABS: C-ANCA Negative (Negative); P-ANCA Indeterminate (Negative)
[2023-02-28 15:03] LABS: HLA B27 Negative
== END 2023-02-24 17:25 | disposition home or self-care (01) ==
LOC: ED 10:09 → EDHOLD 15:04 → SUATTDRO 15:04 → EDHOLD 15:09 → MED 21:22
PROVIDERS: ADMIT Hospitalist; ATTEND Hospitalist

== ENCOUNTER 2023-08-15 08:22 | Observation (INO) ==
[2023-08-15 09:30] LABS: Hematocrit 36.3 % (38-53); Mean Corpuscular Hemoglobin 35.5 pg (27-33); Mean Corpuscular Hgb Conc 35.9 g/dL (31-36); Mean Corpuscular Volume 98.8 fL (80-97); Mean Platelet Volume 8.6 fL (7.5-11.2); Platelet Count 202 10^3/uL (150-450); Red Blood Count 3.68 10^6/uL (4.06-5.63); Red Cell Distribution Width 16.6 % (12-17); White Blood Count 14.7 10^3/uL (3.6-10.2)
[2023-08-15 10:08] LABS: ABS Lymphocytes 0.5 10^3/uL (1.0-4.8); ABS Monocytes 0.7 10^3/uL (0.0-1.1); ABS Neutrophils 13.5 10^3/uL (1.5-7.6); ABS Nucleated RBC 0.01 10^3/ul; Lymphocyte % 3.7 %; Nucleated Red Blood Cells % 0.1 %/100WBC (0.0-0.8)
[2023-08-15] MEDS: Cefepime 2 GM in Dextrose 2 GM/50 ML BAG IV ONE (10:16)
[2023-08-15] MEDS: Lactated Ringers 1000 ml BAG 1,000 ML IV ONE (10:17)
[2023-08-15 10:21] LABS: Albumin 4.2 g/dL (3.2-5.2); Albumin/Globulin Ratio 1.4 (1-3); C Reactive Protein 207.01 mg/L (<8.01); Calcium 9.1 mg/dL (8.6-10.3); Creatinine, Serum 1.33 mg/dL (0.67-1.17); Potassium 2.9 mmol/L (3.5-5.0); Total Bilirubin 2.2 mg/dL (0.2-1.0); Total Protein 7.2 g/dL (6.4-8.9)
[2023-08-15 10:55] LABS: High Sensitivity Troponin 1 Hr 33 pg/mL (<20)
[2023-08-15] MEDS: Potassium EFFERVES 25 meq TAB PO ONE (11:34)
[2023-08-15 11:48] LABS: Magnesium 1.4 mg/dL (1.9-2.7)
[2023-08-15] MEDS: Magnesium Sulfate 2 gm BAG 2 GM/50 ML BAG IVPB ONE (13:15)
[2023-08-15] MEDS: Enoxaparin 40 MG/0.4 ML SYR SUBCUT SCH (13:15)
[2023-08-15 16:55] LABS: Creatinine, Serum 1.26 mg/dL (0.67-1.17); Potassium 3.6 mmol/L (3.5-5.0); eGFR CKD-EPI 66.1 (>60)
[2023-08-15] MEDS ORDERED: cefTRIAXone 2 gm/50 mL D5W 2 GM/50 ML BAG IV SCH (18:00)
[2023-08-15] MEDS: cefTRIAXone 2 gm/50 mL D5W 2 GM/50 ML BAG IV SCH (18:22)
[2023-08-16 06:21] LABS: Hematocrit 33.1 % (38-53); Hemoglobin 11.6 g/dL (13.2-16.3); Mean Corpuscular Hemoglobin 34.7 pg (27-33); Mean Corpuscular Volume 99.3 fL (80-97); Mean Platelet Volume 8.7 fL (7.5-11.2); Platelet Count 188 10^3/uL (150-450); Red Blood Count 3.33 10^6/uL (4.06-5.63); Red Cell Distribution Width 16.4 % (12-17); White Blood Count 12.3 10^3/uL (3.6-10.2)
[2023-08-16 07:06] LABS: ALT 41 U/L (7-52); AST 38 U/L (13-39); Albumin 3.5 g/dL (3.2-5.2); Albumin/Globulin Ratio 1.2 (1-3); Alkaline Phosphatase 162 U/L (35-149); Anion Gap 10 mmol/L (2-16); Blood Urea Nitrogen 16 mg/dL (6-24); CO2 Carbon Dioxide 28 mmol/L (22-32); Calcium 8.7 mg/dL (8.6-10.3); Chloride 97 mmol/L (101-111); Creatinine, Serum 1.09 mg/dL (0.67-1.17); Globulin 2.9 g/dL (2-4); Glucose 97 mg/dL (70-100); Potassium 3.3 mmol/L (3.5-5.0); Sodium 135 mmol/L (135-145); Total Bilirubin 1.1 mg/dL (0.2-1.0); Total Protein 6.4 g/dL (6.4-8.9); eGFR CKD-EPI 78.7 (>60)
[2023-08-16 08:24] LABS: Magnesium 2.1 mg/dL (1.9-2.7)
[2023-08-16] MEDS: Lactated Ringers 1000 ml BAG 1,000 ML IV SCH (08:36)
[2023-08-16] MEDS: Potassium Chlor 20 meq TAB.ER PO ONE (08:38)
[2023-08-16 08:50] LABS: Folate 18.65 ng/mL (5.90-24.80)
[2023-08-16 08:51] LABS: Vitamin B12 1062 pg/mL (180-914)
[2023-08-16 16:07] LABS: % Iron Saturation 6 % (15-55); .Transferrin 221 mg/dL (203-362); C Reactive Protein 262.54 mg/L (<8.01); Iron < 20 ug/dL (50-212); Total Iron Binding Capacity 309 mcg/dL (250-450); Unsaturated Iron Binding 289 ug/dL
[2023-08-16 16:26] LABS: Ferritin 181.5 ng/mL (24-336)
[2023-08-16 17:57] LABS: Erythrocyte Sed Rate 100 mm/Hr (0-19)
[2023-08-17 07:14] LABS: ABS Eosinophils 0.1 10^3/uL (0.0-0.5); ABS Lymphocytes 0.8 10^3/uL (1.0-4.8); ABS Monocytes 0.5 10^3/uL (0.0-1.1); ABS Neutrophils 8.9 10^3/uL (1.5-7.6); ABS Nucleated RBC 0.01 10^3/ul; Eosinophil % 1.1 %; Hematocrit 31.5 % (38-53); Hemoglobin 11.3 g/dL (13.2-16.3); Lymphocyte % 7.6 %; Mean Corpuscular Hemoglobin 35.7 pg (27-33); Mean Corpuscular Hgb Conc 35.9 g/dL (31-36); Mean Corpuscular Volume 99.2 fL (80-97); Mean Platelet Volume 8.6 fL (7.5-11.2); Nucleated Red Blood Cells % 0.1 %/100WBC (0.0-0.8); Platelet Count 209 10^3/uL (150-450); Red Blood Count 3.18 10^6/uL (4.06-5.63); White Blood Count 10.4 10^3/uL (3.6-10.2)
[2023-08-17 07:31] LABS: Albumin 3.4 g/dL (3.2-5.2); Albumin/Globulin Ratio 1.2 (1-3); Calcium 8.5 mg/dL (8.6-10.3); Creatinine, Serum 0.93 mg/dL (0.67-1.17); Globulin 2.8 g/dL (2-4); Potassium 3.4 mmol/L (3.5-5.0); Total Bilirubin 0.7 mg/dL (0.2-1.0); Total Protein 6.2 g/dL (6.4-8.9); eGFR CKD-EPI 95.2 (>60)
[2023-08-17] MEDS: Potassium Chlor 20 meq TAB.ER PO ONE (09:39)
[2023-08-17] MEDS: Iohexol 300 (CONTRAST) 10 ML SDV IV ONE (10:43)
[2023-08-17 14:14] VITALS: BP 123/77
[2023-08-18 19:34] LABS: Anaplasma phagocytophilum Negative (Negative); B. miyamotoi PCR, B Negative (Negative); Babesia divergens/MO-1 Negative (Negative); Babesia ducani Negative (Negative); Ehrlichia chaffeensis Negative (Negative); Ehrlichia ewingii/canis Negative (Negative); Ehrlichia muris eauclairensis Negative (Negative)
== END 2023-08-17 15:40 | disposition home or self-care (01) ==
LOC: ED 08:22 → EDHOLD 08:22 → MED 13:18
PROVIDERS: ADMIT Internal Medicine; ATTEND Internal Medicine